=== PATIENT | female | born 1945 | race African-American/Black ===

== ENCOUNTER 2023-04-15 15:34 | Outpatient (AMB) | payer OTHER, SELFPAY ==
--- NOTE | 2023-04-15 15:41 | A.OFFPC_ITS ---
Vital Signs 04/15/23 15:46 Height 5 ft 3 in Weight 145 lb BMI 25.7 BP 126/80 Blood Pressure Location Lt brachial Position Sitting Intake Visit Reasons: DM Intake Note: Patient here for a follow up DM Burnisher Required: No Accompanied by: Self / Same As Patient Allergies No Known Allergies Allergy (Verified 04/15/23 15:55) Medication List - Last Reconciled 04/15/23 by Jeanne Barreto MD acetaminophen (Tylenol Extra Strength) 500 mg PO Q6H PRN blood-glucose meter (FreeStyle Lite Meter kit) As directed metformin 500 mg PO BID 90 days sertraline 25 mg PO DAILY 90 days Tobacco use date assessed: 11/02/22 Fall risk assessment: No Falls in past year Last assessed Fall Risk: 04/15/23 Dental Screening Dental Screen Date: 04/15/23 Did you have a dental visit in the last 12 months?: No Did you have a dental problem in the last 6 months where you did not have access to dental care?: No Was dental information given to patient?: Patient has dentist HPI HPI Comments History of Present Illness Details This is a 77-year-old female with moderate major depression, anxiety, diabetes mellitus type 2 and pure hypercholesterolemia that comes today for follow-up on her conditions. She has not been taking sertraline for depression with anxiety and I advised her to restart. A1c elevated and I will start her on insulin. I will also increase metformin. Lipid panel will be order and her LDL goal should be less than 70. [facility] Medical History Diabetes mellitus CABRERA (generalized anxiety disorder) Moderate major depression, single episode Muscle cramps Pure hypercholesterolemia Vitiligo Surgical History History of tubal ligation Family History Daughter Diabetes mellitus Mother Diabetes mellitus Father Diabetes mellitus Other Mental health disorder Substance use disorder Social History Housing: Apartment Alcohol intake: never Patient Tobacco Use Status: Never used Tobacco e-Cigarette/Vaping Use: Never Used Second Hand Smoke Exposure: No service: No Current occupational status: disabled Cognitive needs: No Hearing needs: No Vision needs: Yes Questionnaire Thrive Questionnaire Date Thrive assessed: 11/02/22 CABRERA-7 AMB Questionnaire CABRERA-7 Date CABRERA - 7 assessed: 11/02/22 Source: Developed by Drs. Bebeto Adkins, Mckayla Tomlin, Hira Christianson and colleagues, with an educational marilin from [employer]. Review of Systems Const All systems reviewed & are unremarkable except as noted in HPI and below Eyes Reports no additional complaints, Denies change in vision and Denies other visual disturbances Card Denies chest pain at rest, Denies chest pain with activity, Denies edema, Denies irregular heart rhythm, Denies claudication, Denies dyspnea, Denies dyspnea on exertion, Denies orthopnea, Denies paroxysmal nocturnal dyspnea and Denies slow heart rate Resp Denies cough, Denies dyspnea and Denies dyspnea on exertion GI Denies abdominal pain, Denies change in bowel habits, Denies excessive flatus, Denies nausea and Denies vomiting Denies urinary incontinence, Denies urinary hesitancy and Denies urinary urgency Musc Denies abnormal gait, Denies atrophy, Denies deformity and Denies limited range of motion Skin/Breast Denies bleeding lesions, Denies changing lesions and Denies rash Neuro Denies abnormal gait and Denies lack of coordination Physical exam (Primary Care) Vital Signs: Last Vital Signs BP 126/80 04/15/23 15:46 BMI result Body Mass Index 25.7 Tobacco/Smoking Status: Tobacco use Status Tobacco use date assessed 11/02/22 04/15/23 15:43 Patient Tobacco Use Status Never used Tobacco 04/15/23 15:43 e-Cigarette/Vaping Use Never Used 04/15/23 15:43 Thrive Assessment: Date of Thrive Assessment Date Thrive assessed 11/02/22 04/15/23 15:43 Eyes General: appearance normal, both eyes and all related structures Eyelids: Yes eyelids normal Conjunctivae: conjunctivae normal Neck Neck: Yes normal visual inspection and Yes supple Resp Effort & Inspection: normal respiratory effort Auscultation: clear to auscultation bilaterally Cardio Jugular venous distension: no JVD Rate: regular rate Rhythm: regular rhythm Heart sounds: S1 normal heart sound present and S2 normal heart sound present Extrem General: Yes full ROM Results AMB Hemoglobin A1c AMB Hemoglobin A1c 12.0 % Last Edit by PERCY Calles on 04/15/23 15: 53 Results Reviewed Results Reviewed: Laboratory Last Values Hgb A1c (Clinic) 12.0 % (4.0-6.0) H 04/15/23 15:40 Assessment and Plan Assessment & Plan (1) Moderate major depression, single episode: Code(s): F32.1 - Major depressive disorder, single episode, moderate Plan: Start sertraline. (2) CABRERA (generalized anxiety disorder): Code(s): F41.1 - Generalized anxiety disorder Plan: Start sertraline. (3) Diabetes mellitus: Code(s): E11.9 - Type 2 diabetes mellitus without complications Qualifiers: Diabetes mellitus type: type 2 Diabetes mellitus prison insulin use: without prison use Diabetes mellitus complication status: with hyperglycemia Qualified Code(s): E11.65 - Type 2 diabetes mellitus with hyperglycemia Plan: Increase metformin. Start insulin. A1c goal is equal or less than 7%. (4) Pure hypercholesterolemia: Code(s): E78.00 - Pure hypercholesterolemia, unspecified Plan: Lipid panel ordered. LDL goal should be less than 70. Orders: Orders Comprehensive [place]. Panel Fast Today E11.65 - Type 2 diabetes mellitus with hyperglycemia Lipid Panel Today E78.5 - Hyperlipidemia, unspecified Vitamin D 25-OH Total Today E55.9 - Vitamin D deficiency, unspecified Microalbumin, Random (w Creat) Today E11.9 - Type 2 diabetes mellitus without complications AMB Hemoglobin A1c Today E11.9 - Type 2 diabetes mellitus without complications Medications: New metformin 1,000 mg PO BID 180 tabs 1RF 90 days E11.65 - Type 2 diabetes mellitus with hyperglycemia insulin glargine 10 units (0.1 mL) subcut QPM 9 mL 1RF 90 days E11.65 - Type 2 diabetes mellitus with hyperglycemia pen needle, diabetic (Comfort EZ Pen [place]) Use 1 pen needle once a day 100 ea 12RF E11.65 - Type 2 diabetes mellitus with hyperglycemia blood sugar diagnostic (FreeStyle Lite Strips) Use 1 test strip twice a day 50 ea 12RF E11.65 - Type 2 diabetes mellitus with hyperglycemia lancets (FreeStyle Lancets) Use 1 lancet twice a day 100 ea 12RF E11.65 - Type 2 diabetes mellitus with hyperglycemia Refilled sertraline 25 mg PO DAILY 90 tabs 1RF 90 days E11.65 - Type 2 diabetes mellitus with hyperglycemia Discontinued metformin Discontinued Reason: Patient Completed Course 500 mg PO BID 90 days 180 tabs 0RF Coding Level of Care Code Est Pt Level 4 (74269) Diagnoses Moderate major depression, single episode F32.1 CABRERA (generalized anxiety disorder) F41.1 Diabetes mellitus E11.65 Diabetes mellitus type: type 2 Diabetes mellitus long term care social worker insulin use: without long term care social worker use Diabetes mellitus complication status: with hyperglycemia Pure hypercholesterolemia E78.00 Time Spent (min) 24
[2023-04-15 15:46] VITALS: BP 126/80; BMI 25.7
== END 2023-04-15 16:05 | disposition home or self-care (01) ==
PROVIDERS: PCP Internal Medicine; Visit Provider Internal Medicine
DX: F32.1 Major depressive disorder, single episode, moderate (principal); F41.1 Generalized anxiety disorder; E11.65 Type 2 diabetes mellitus with hyperglycemia; E78.00 Pure hypercholesterolemia, unspecified; E11.9 Type 2 diabetes mellitus without complications
CPT/HCPCS: 83036; 99214

== ENCOUNTER 2023-11-09 13:31 | Outpatient (AMB) | payer OTHER, SELFPAY ==
[2023-11-09 13:54] VITALS: BP 132/80; BMI 25.5
--- NOTE | 2023-11-09 13:54 | A.OFFPC_ITS ---
Vital Signs 11/09/23 13:54 Height 5 ft 3 in Weight 144 lb BMI 25.5 BP 132/80 Blood Pressure Location Lt brachial Position Sitting Intake Visit Reasons: Annual Exam Intake Note: Patient here for an annual physical exam Hazardous Substances Scientist Required: No Accompanied by: Self / Same As Patient Allergies No Known Allergies Allergy (Verified 11/09/23 14:13) Medication List - Last Reconciled 11/09/23 by Jeanne Barreto MD acetaminophen (Tylenol Extra Strength) 500 mg PO Q6H PRN blood sugar diagnostic (FreeStyle Lite Strips) Use 1 test strip twice a day blood-glucose meter (FreeStyle Lite Meter kit) As directed insulin glargine 10 units (0.1 mL) subcut QPM 90 days lancets (FreeStyle Lancets) Use 1 lancet twice a day metformin 1,000 mg PO BID 90 days pen needle, diabetic (Comfort EZ Pen [place]) Use 1 pen needle once a day sertraline 25 mg PO DAILY 90 days Tobacco use date assessed: 11/09/23 Fall risk assessment: No Falls in past year Last assessed Fall Risk: 11/09/23 Dental Screening Dental Screen Date: 11/09/23 Did you have a dental visit in the last 12 months?: Yes Did you have a dental problem in the last 6 months where you did not have access to dental care?: No Was dental information given to patient?: Patient has dentist HPI HPI Comments History of Present Illness Details This is a 77-year-old female with moderate major depression and diabetes mellitus type 2 on long-term current use of insulin that comes for her physical exam. Depression has markedly improved with SSRIs. A1c very elevated and she does use Lantus 10 units that I will increase today to 20 units. She is also using metformin. Last diabetic eye exam was less than a year ago as per patient. No chest pain or shortness of breath. No need for mammogram, Pap smear or colonoscopy due to age. [facility] Medical History (Updated 11/09/23 @ 14:44 by Jeanne Barreto MD) CABRERA (generalized anxiety disorder) Moderate major depression, single episode Muscle cramps Vitiligo Pure hypercholesterolemia Diabetes mellitus Surgical History History of tubal ligation Family History (Updated 11/09/23 @ 14:17 by Jeanne Barreto MD) Daughter Diabetes mellitus Mother Diabetes mellitus Father Diabetes mellitus Other Mental health disorder Substance use disorder Social History Housing: Apartment Alcohol intake: never Patient Tobacco Use Status: Never used Tobacco e-Cigarette/Vaping Use: Never Used Second Hand Smoke Exposure: No service: No Current occupational status: disabled Cognitive needs: No Hearing needs: No Vision needs: Yes Questionnaire PHQ-9 Over the last 2 weeks, how often have you been bothered by any of the following problems? 1. Little interest or pleasure in doing things: not at all 2. Feeling down, depressed, or hopeless: not at all 3. Trouble falling or staying asleep, or sleeping too much: not at all 4. Feeling tired or having little energy: not at all 5. Poor appetite or overeating: not at all 6. Feeling bad about yourself - or that you are a failure or have let yourself or your family down: not at all 7. Trouble concentrating on things, such as reading the newspaper or watching television: not at all 8. Moving or speaking so slowly that other people could have noticed. Or the opposite - being so fidgety or restless that you have been moving around a lot more than usual: not at all 9. Thoughts that you would be better off or of hurting yourself in some way: not at all Total score: 0 Depression Screening Interpretation: Negative Depression Screening Done: Yes 83620 - PHQ-9 Billing: Yes Source: Developed by Drs. Bebeto Adkins, Mckayla Tomlin, Hira Christianson and colleagues, with an educational marilin from [employer]. Thrive Questionnaire Date Thrive assessed: 11/09/23 I am a: Patient What is your living situation today?: I have a steady place to live Within the past 12 months, did the food you bought not last and you didn't have the money to get more?: Never true Within the past 12 months, did you worry whether your food would run out before you got money to buy more?: Never true Do you have trouble paying for medicines?: No Do you have trouble getting transportation to medical appointments?: No Do you have trouble paying your heating and electricity bill?: No Do you have trouble taking care of your child, family member or friend?: No Do you have trouble with day-to-day activities such as bathing, preparing meals, shopping, managing finances, etc.?: No Are you currently unemployed and looking for a job?: No Are you interested in more education?: No Please select the resources that you would like help with: None Currently or been in a relationship where the following occur: no concerns reported THRIVE Score: 0 AUDIT C Alcohol Use Questionnaire (AUDIT-C) 1. How often do you have a drink containing alcohol?: Never Total Score: 0 Score Reviewed/Action Taken: No CABRERA-7 AMB Questionnaire CABRERA-7 Date CABRERA - 7 assessed: 11/09/23 Feeling nervous, anxious, or on edge: 1 = Several days Not being able to stop or control worryin = Not at all Worrying too much about different things: 0 = Not at all Trouble relaxin = Not at all Being so restless that it is hard to sit still: 0 = Not at all Becoming easily annoyed or irritable: 0 = Not at all Feeling afraid as if something awful might happen: 0 = Not at all Total CABRERA-7 score (0-4 normal; 5-9 mild; 10-14 moderate; 15-21 severe): 1 Source: Developed by Drs. Bebeto Adkins, Mckayla Tomlin, Hira Christianson and colleagues, with an educational marilin from [employer]. CABRERA-7 Assessment Billing CABRERA-7 Assessment Tool: CABRERA-7 Assessment 44878 Review of Systems Const All systems reviewed & are unremarkable except as noted in HPI and below Eyes Reports no additional complaints, Denies change in vision and Denies other visual disturbances Card Denies chest pain at rest, Denies chest pain with activity, Denies edema, Denies irregular heart rhythm, Denies claudication, Denies dyspnea, Denies dyspnea on exertion, Denies orthopnea, Denies paroxysmal nocturnal dyspnea and Denies slow heart rate Resp Denies cough, Denies dyspnea and Denies dyspnea on exertion GI Denies abdominal pain, Denies change in bowel habits, Denies excessive flatus, Denies nausea and Denies vomiting Denies urinary incontinence, Denies urinary hesitancy and Denies urinary urgency Musc Denies abnormal gait, Denies atrophy, Denies deformity and Denies limited range of motion Skin/Breast Denies bleeding lesions, Denies changing lesions and Denies rash Neuro Denies abnormal gait and Denies lack of coordination Physical exam (Primary Care) Vital Signs: Last Vital Signs BP 132/80 11/09/23 13:54 BMI result Body Mass Index 25.5 Tobacco/Smoking Status: Tobacco use Status Tobacco use date assessed 11/09/23 11/09/23 14:00 Patient Tobacco Use Status Never used Tobacco 11/09/23 14:00 e-Cigarette/Vaping Use Never Used 11/09/23 14:00 PHQ-9: PHQ-9 Score PHQ-9: Total score 0 11/09/23 14:17 Depression Screening Interpretation: Negative Thrive Assessment: Date of Thrive Assessment Date Thrive assessed 11/09/23 11/09/23 14:00 Currently or been in a relationship where the following occur: no concerns reported Const Orientation/consciousness: patient oriented x3 HENMT Head: Yes normal to inspection, Yes normocephalic and Yes atraumatic Ears: external ears normal Eyes General: appearance normal, both eyes and all related structures Eyelids: Yes eyelids normal Conjunctivae: conjunctivae normal Neck Neck: Yes normal visual inspection and Yes supple Resp Effort & Inspection: normal respiratory effort Auscultation: clear to auscultation bilaterally Cardio Jugular venous distension: no JVD Rate: regular rate Rhythm: regular rhythm Heart sounds: S1 normal heart sound present and S2 normal heart sound present GI Inspection: Yes normal to inspection Palpation (GI): Soft to palpation and nontender Auscultation: normal bowel sounds Skin General skin exam: no rashes or lesions noted Neuro General: patient oriented x3 and no focal motor deficits Extrem General: Yes full ROM Psych Appearance: grossly normal Results AMB Hemoglobin A1c AMB Hemoglobin A1c 11.6 % Last Edit by PERCY Calles on 11/09/23 14: 02 Results Reviewed Results Reviewed: Laboratory Last Values Hgb A1c (Clinic) 11.6 % (4.0-6.0) H 11/09/23 14:00 Assessment and Plan Assessment & Plan (1) Physical exam: Code(s): Z00.00 - Encounter for general adult medical examination without abnormal findings Plan: Repeat in a year. (2) Diabetes mellitus with hyperglycemia, with long-term current use of insulin: Code(s): E11.65 - Type 2 diabetes mellitus with hyperglycemia; Z79.4 - shelter (current) use of insulin Plan: Continue metformin. Increase insulin from 10 units to 20 units. A1c goal is equal or less than 7%. (3) Moderate major depression, single episode: Code(s): F32.1 - Major depressive disorder, single episode, moderate Plan: Continue SSRIs. Orders: Orders AMB Hemoglobin A1c Today E11.9 - Type 2 diabetes mellitus without complications Vitamin D 25-OH Total Today E55.9 - Vitamin D deficiency, unspecified Microalbumin, Random (w Creat) Today E11.9 - Type 2 diabetes mellitus without complications XR DEXA axial skeleton Today N95.9 - Unspecified menopausal and perimenopausal disorder Lipid Panel Today E78.5 - Hyperlipidemia, unspecified Comprehensive [place]. Panel Fast Today E11.65 - Type 2 diabetes mellitus with hyperglycemia, Z79.4 - terminal gauger supervisor (current) use of insulin Medications: New flash glucose sensor (FreeStyle [place] 2 Sensor kit) As directed 1 ea 11RF E11.65 - Type 2 diabetes mellitus with hyperglycemia, Z79.4 - terminal gauger supervisor (current) use of insulin Changed From insulin glargine 10 units (0.1 mL) subcut QPM 90 days 9 mL 1RF E11.65 - Type 2 diabetes mellitus with hyperglycemia To insulin glargine 20 units (0.2 mL) subcut QPM 18 mL 1RF 90 days E11.65 - Type 2 diabetes mellitus with hyperglycemia Coding Level of Care Code Est Pt Prev Care >65y(69801) Diagnoses Physical exam Z00.00 Diabetes mellitus with hyperglycemia, with long-term current use of insulin E11.65; Z79.4 Moderate major depression, single episode F32.1 Additional Codes CABRERA-7 Assessment Billing - CABRERA-7 Assessment Tool: CABRERA-7 Assessment [id number] ([id number]) Time Spent (min) 33
== END 2023-11-09 14:28 | disposition home or self-care (01) ==
PROVIDERS: Visit Provider Internal Medicine
DX: Z00.00 Encounter for general adult medical examination without abnormal findings (principal); E11.65 Type 2 diabetes mellitus with hyperglycemia; Z79.4 Long term (current) use of insulin; F32.1 Major depressive disorder, single episode, moderate; E11.9 Type 2 diabetes mellitus without complications
CPT/HCPCS: 83036; 99397

== ENCOUNTER 2023-11-13 08:42 | Outpatient (REF) | payer OTHER, SELFPAY ==
[2023-11-13 10:00] LABS: Alanine Aminotransferase 14 U/L (0-31); Alkaline Phosphatase 68 U/L (39-117); Anion Gap 15 (12-20); Aspartate Amino Transferase 19 U/L (5-31); Bilirubin Total 0.4 mg/dL (0.0-1.0); Blood Urea Nitrogen 22 mg/dL (9-16); Calcium 9.5 mg/dL (8.4-10.2); Carbon Dioxide 25 mmol/L (22-29); Chloride 102 mmol/L (96-108); Cholesterol 188 mg/dL (<200); Estimated Glomerular Filt Rate 56; Glucose Fasting 245 mg/dL (60-99); HDL Cholesterol 41 mg/dL (>40); LDL Cholesterol Calculated 111 mg/dL (<100); Potassium 3.9 mmol/L (3.3-5.1); Sodium 138 mmol/L (135-145); Total Protein 7.5 g/dL (6.5-8.0); Triglycerides 184 mg/dL (<150)
[2023-11-13 10:14] LABS: Creatinine Urine 23.35 mg/dL; Microalbum/Creatinine Ratio Ur 21.4 ug/mg cr (<30)
[2023-11-13 10:19] LABS: Vitamin D 25-OH Total 24.9 ng/mL (>30)
== END 2023-11-13 08:43 | disposition home or self-care (01) ==
LOC: HO.LAB 08:42
PROVIDERS: PCP Internal Medicine; Visit Provider Internal Medicine
DX: E11.65 Type 2 diabetes mellitus with hyperglycemia (principal); E78.5 Hyperlipidemia, unspecified; E55.9 Vitamin D deficiency, unspecified; Z79.4 Long term (current) use of insulin
CPT/HCPCS: 36415; 80053; 80061; 82043; 82306; 82570

== ENCOUNTER 2024-02-23 09:51 | Outpatient (REF) | payer OTHER, SELFPAY ==
--- NOTE | ~2024-02-23 | MM_ITS ---
EXAMINATION: BONE DENSITOMETRY CLINICAL INDICATION: Postmenopausal. COMPARISON: Baseline BD dated 06/30/2013. TECHNIQUE: Using a [employer] DXA System (software version: 13.1) manufactured by [employer], dual-energy x-ray absorptiometry was performed of the lumbar spine and left hip. The images are of good technical quality. Summary results are attached. FINDINGS: LEFT FEMUR, NECK: Current: BMD 0.862 g/cm2, Z-score 0.3, T-score -1.3, osteopenia. Baseline: BMD 0.861 g/cm2. LEFT FEMUR, TOTAL: Current: BMD 0.897 g/cm2, Z-score 0.5, T-score -0.9, normal, 10.2% decrease from baseline (<5% change is not significant). Baseline: BMD 0.999 g/cm2. AP SPINE L1-L3 (excluding L4): The data of L1-L4 has been changed to exclude the L4 vertebral body, because general sclerosis at this level may cause overestimation of lumbar spine density. Current: BMD 1.260 g/cm2, Z-score 1.9, T-score 0.8, normal, 2.4% decrease from baseline (<5% change is not significant). Baseline: BMD 1.291 g/cm2. IDENTIFIED RISK FACTORS: Menopause. HISTORY OF FRACTURE: None listed. MEDICATIONS: None listed. MM/XR DEXA axial skeleton IMPRESSION: 1. DIAGNOSIS: Osteopenia based on the lowest T-score value of -1.3 in the femoral neck applying World Health Organization criteria. 2. 10-YEAR FRACTURE RISK PREDICTION, FRAX: Major osteoporotic fracture (clinical spine, forearm, hip or shoulder) 6.1%. Hip fracture 1.1%. 3. Treatment Recommendations: NOF guidelines recommend consideration for treatment in postmenopausal women and men age 50 and older presenting with the following: -A hip or vertebral (clinical or morphometric) fracture. -T-score less than or equal to -2.5 at the femoral neck or spine after appropriate evaluation to exclude secondary causes. -Low bone mass at the hip or spine and a 10-year fracture probability by FRAX of greater than or equal to 3% for hip fracture or greater than or equal to 20% for major osteoporotic fracture based on the [place] adapted WHO algorithm. 4. Other Recommendations: All treatment decisions require clinical judgment and consideration of individual patient factors, including patient preferences, comorbidities, previous drug use, risk factors not captured in the FRAX model (e.g. frailty, falls, vitamin D deficiency, increased bone turnover, interval significant decline in bone density) and possible under or overestimation of fracture risk by FRAX. Additional medical evaluation for secondary cause of low bone mineral density may be appropriate. FUTURE SCAN RECOMMENDATION: People with diagnosed cases of osteoporosis or at high risk for fracture should have regular bone mineral density tests. For patients eligible for Medicare, routine testing is allowed once every 2 years. The testing frequency can be increased to one year for patients who have rapidly progressing disease, those who are receiving or discontinuing medical therapy to restore bone mass, or have additional risk factors.
== END 2024-02-23 09:52 | disposition home or self-care (01) ==
LOC: HO.MAMMO 09:51
PROVIDERS: PCP Internal Medicine; Visit Provider Internal Medicine
DX: Z13.820 Encounter for screening for osteoporosis (principal); Z78.0 Asymptomatic menopausal state
CPT/HCPCS: 77080

== ENCOUNTER 2024-03-30 09:08 | Outpatient (AMB) | payer OTHER, SELFPAY ==
--- NOTE | 2024-03-30 09:11 | MHC.PC.OV ---
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 Accompanied by: Self / Same As Patient Allergies No Known Allergies Allergy (Verified 03/30/24 09:30) Medication List - Last Reconciled 03/30/24 by Jeanne Barreto MD acetaminophen (Tylenol Extra Strength) 500 mg PO Q6H PRN [air conditioner As directed] blood sugar diagnostic (FreeStyle Lite Strips) Use 1 test strip twice a day blood-glucose meter (FreeStyle Lite Meter kit) As directed calcium carbonate-vitamin D3 500 mg-10 mcg (400 unit) (Oyster Shell Calcium-Vitamin D3) 1 tab PO BID 90 days flash glucose sensor (FreeStyle Royal 2 Sensor kit) As directed insulin glargine 20 units (0.2 mL) subcut QPM 90 days lancets (FreeStyle Lancets) Use 1 lancet twice a day metformin 1,000 mg PO BID 90 days pen needle, diabetic (Comfort EZ Pen [place]) Use 1 pen needle once a day sertraline 25 mg PO DAILY 90 days Tobacco use date assessed: 11/09/23 Fall risk assessment: No Falls in past year Last assessed Fall Risk: 03/30/24 Dental Screening Dental Screen Date: 11/09/23 HPI HPI Comments History of Present Illness Details This is a 78-year-old female with diabetes mellitus type 2 on long-term current use of insulin, pure hypercholesterolemia, moderate major depression, anxiety and osteopenia that comes today for follow-up on her conditions. A1c elevated and I will refer her to Endocrinology and increase her insulin from 20 units to 25 units. Last LDL was not on goal and this will be repeated. Dietary changes were advised. Depression and anxiety stable with SSRIs. DEXA scan done 2023 shows osteopenia and she is on calcium with vitamin-D. No chest pain or shortness on breath. [facility] Medical History (Updated 03/30/24 @ 09:41 by Jeanne Barreto MD) CABRERA (generalized anxiety disorder) Moderate major depression, single episode Muscle cramps Vitiligo Pure hypercholesterolemia Diabetes mellitus Surgical History History of tubal ligation Family History Daughter Diabetes mellitus Mother Diabetes mellitus Father Diabetes mellitus Other Mental health disorder Substance use disorder Social History Housing: Apartment Alcohol intake: never Patient Tobacco Use Status: Never used Tobacco e-Cigarette/Vaping Use: Never Used Second Hand Smoke Exposure: No service: No Current occupational status: disabled Cognitive needs: No Hearing needs: No Vision needs: Yes Questionnaire Thrive Questionnaire Date Thrive assessed: 11/09/23 CABRERA-7 AMB Questionnaire CABRERA-7 Date CABRERA - 7 assessed: 11/09/23 Source: Developed by Drs. Bebeto Adkins, Mckayla Tomlin, Hira Christianson and colleagues, with an educational marilin from [employer]. Review of Systems Const All systems reviewed & are unremarkable except as noted in HPI and below Card Denies chest pain at rest, Denies chest pain with activity, Denies edema, Denies irregular heart rhythm, Denies claudication, Denies dyspnea, Denies dyspnea on exertion, Denies orthopnea, Denies paroxysmal nocturnal dyspnea and Denies slow heart rate Resp Denies cough, Denies dyspnea and Denies dyspnea on exertion GI Denies abdominal pain, Denies change in bowel habits, Denies excessive flatus, Denies nausea and Denies vomiting Denies urinary incontinence, Denies urinary hesitancy and Denies urinary urgency Physical exam (Primary Care) Vital Signs: Last Vital Signs BP 136/74 03/30/24 09:12 BMI result Body Mass Index 25.9 Tobacco/Smoking Status: Tobacco use Status Tobacco use date assessed 11/09/23 03/30/24 09:14 Patient Tobacco Use Status Never used Tobacco 03/30/24 09:14 e-Cigarette/Vaping Use Never Used 03/30/24 09:14 Thrive Assessment: Date of Thrive Assessment Date Thrive assessed 11/09/23 03/30/24 09:14 Resp Effort & Inspection: normal respiratory effort Auscultation: clear to auscultation bilaterally Cardio Jugular venous distension: no JVD Rate: regular rate Rhythm: regular rhythm Heart sounds: S1 normal heart sound present and S2 normal heart sound present Extrem General: Yes full ROM Results AMB Hemoglobin A1c AMB Hemoglobin A1c 11.1 % Last Edit by PERCY Calles on 03/30/24 09:24 Results Reviewed Results Reviewed: Laboratory Last Values Hgb A1c (Clinic) 11.1 % (4.0-6.0) H 03/30/24 09:14 Assessment and Plan Assessment & Plan (1) Diabetes mellitus with hyperglycemia, with long-term current use of insulin: Code(s): E11.65 - Type 2 diabetes mellitus with hyperglycemia; Z79.4 - jail (current) use of insulin Qualifiers: Diabetes mellitus type: type 2 Qualified Code(s): E11.65 - Type 2 diabetes mellitus with hyperglycemia; Z79.4 - long term acute care registered nurse (current) use of insulin Plan: Continue metformin. Increase insulin from 20 units to 25 units. Referred to Endocrinology. A1c goal is equal or less than 7%. (2) Osteopenia: Code(s): M85.80 - Other specified disorders of bone density and structure, unspecified site Qualifiers: Osteopenia location: unspecified Qualified Code(s): M85.80 - Other specified disorders of bone density and structure, unspecified site Plan: Continue calcium with vitamin-D. Repeat DEXA scan 2025. (3) Moderate major depression, single episode: Code(s): F32.1 - Major depressive disorder, single episode, moderate Plan: Continue SSRIs. (4) Pure hypercholesterolemia: Code(s): E78.00 - Pure hypercholesterolemia, unspecified Plan: Continue statins. Repeat lipid panel. LDL goal is less than 70. (5) CABRERA (generalized anxiety disorder): Code(s): F41.1 - Generalized anxiety disorder Plan: Continue SSRIs. Orders: Orders AMB Hemoglobin A1c Today E11.65 - Type 2 diabetes mellitus with hyperglycemia, Z79.4 - long term acute care registered nurse (current) use of insulin Microalbumin, Random (w Creat) Today E11.9 - Type 2 diabetes mellitus without complications Lipid Panel Today E78.5 - Hyperlipidemia, unspecified Comprehensive [place]. Panel Fast Today E11.65 - Type 2 diabetes mellitus with hyperglycemia, Z79.4 - jail (current) use of insulin Referrals Endocrinology Referral E11.65 - Type 2 diabetes mellitus with hyperglycemia, Z79.4 - jail (current) use of insulin Medications: Changed From insulin glargine 20 units (0.2 mL) subcut QPM 90 days 18 mL 1RF E11.65 - Type 2 diabetes mellitus with hyperglycemia To insulin glargine 25 units (0.25 mL) subcut QPM 90 days 22.5 mL 1RF E11.65 - Type 2 diabetes mellitus with hyperglycemia Refilled metformin 1,000 mg PO BID 90 days 180 tabs 1RF E11.65 - Type 2 diabetes mellitus with hyperglycemia sertraline 25 mg PO DAILY 90 days 90 tabs 1RF E11.65 - Type 2 diabetes mellitus with hyperglycemia Coding Level of Care Code Est Pt Level 4 (10276) Complex EM visit Add On G2211 Diagnoses Type 2 diabetes mellitus with hyperglycemia, with long-term current use of insulin E11.65; Z79.4 Diabetes mellitus type: type 2 Osteopenia, unspecified location M85.80 Osteopenia location: unspecified Moderate major depression, single episode F32.1 Pure hypercholesterolemia E78.00 CABRERA (generalized anxiety disorder) F41.1 Time Spent (min) 23
[2024-03-30 09:12] VITALS: BP 136/74; BMI 25.9
== END 2024-03-30 09:39 | disposition home or self-care (01) ==
PROVIDERS: PCP Internal Medicine; Visit Provider Internal Medicine
DX: E11.65 Type 2 diabetes mellitus with hyperglycemia (principal); Z79.4 Long term (current) use of insulin; M85.80 Other specified disorders of bone density and structure, unspecified site; F32.1 Major depressive disorder, single episode, moderate; E78.00 Pure hypercholesterolemia, unspecified; F41.1 Generalized anxiety disorder
CPT/HCPCS: 83036; 99214; G2211

== ENCOUNTER 2024-04-07 16:01 | Outpatient (REF) | payer OTHER, SELFPAY ==
--- NOTE | ~2024-04-07 | MM_ITS ---
EXAMINATION: MM SCREENING DIGITAL BREAST TOMOSYNTHESIS, BILATERAL CLINICAL INFORMATION: Screening. Asymptomatic. COMPARISON: Mammography: [place] is made with available prior exams. TECHNIQUE: Digital breast tomosynthesis is performed in both the craniocaudal and mediolateral oblique views along with computer-aided detection (CAD). Synthesized 2D images are generated from the tomosynthesis. FINDINGS: There are scattered areas of fibroglandular density (ACR BI-RADS breast composition Category b). There are no significant masses, abnormal calcifications, or other abnormalities. MM/MM tomosynthesis screening BI IMPRESSION: No mammographic evidence of malignancy. ASSESSMENT: BI-RADS BI-RADS 1 - Negative RECOMMENDATION: Routine annual mammography screening. 1 year F/U This examination should not preclude the clinical evaluation of a suspicious palpable abnormality. This patient's information was entered into a reminder system with a target due date for their next mammogram. Electronically signed by: Lynn Merida DO 05/05/2024 09:52 AM EDT
== END 2024-04-07 16:02 | disposition home or self-care (01) ==
LOC: HO.MAMMO 16:01
PROVIDERS: PCP Internal Medicine; Visit Provider Internal Medicine
DX: Z12.31 Encounter for screening mammogram for malignant neoplasm of breast (principal)
CPT/HCPCS: 77063; 77067

== ENCOUNTER → 2024-04-07 16:30 | Outpatient (BNV) | payer OTHER, SELFPAY | PROVIDERS: PCP Internal Medicine; Visit Provider Internal Medicine | DX: Z12.31 Encounter for screening mammogram for malignant neoplasm of breast (principal) | CPT/HCPCS: 77063; 77067 ==

== ENCOUNTER 2024-09-09 08:26 | Outpatient (REF) | payer OTHER, SELFPAY ==
[2024-09-09 09:45] LABS: Creatinine Urine 291.76 mg/dL; Microalbum/Creatinine Ratio Ur 17.8 ug/mg cr (<30)
[2024-09-09 09:48] LABS: Alanine Aminotransferase 18 U/L (0-31); Albumin Level 4.2 g/dL (3.5-5.0); Alkaline Phosphatase 65 U/L (39-117); Anion Gap 12 (12-20); Aspartate Amino Transferase 25 U/L (5-31); Bilirubin Total 0.4 mg/dL (0.0-1.0); Blood Urea Nitrogen 20 mg/dL (9-16); Calcium 9.3 mg/dL (8.4-10.2); Carbon Dioxide 26 mmol/L (22-29); Chloride 104 mmol/L (96-108); Cholesterol 182 mg/dL (<200); Estimated Glomerular Filt Rate > 60; Glucose Fasting 280 mg/dL (60-99); HDL Cholesterol 43 mg/dL (>40); LDL Cholesterol Calculated 116 mg/dL (<100); Potassium 4.2 mmol/L (3.3-5.1); Sodium 138 mmol/L (135-145); Total Protein 7.9 g/dL (6.5-8.0); Triglycerides 115 mg/dL (<150)
[2024-09-09 10:06] LABS: Vitamin D 25-OH Total 26.8 ng/mL (>30)
== END 2024-09-09 08:27 | disposition home or self-care (01) ==
LOC: HO.LAB 08:26
PROVIDERS: PCP Internal Medicine; Visit Provider Internal Medicine
DX: E55.9 Vitamin D deficiency, unspecified (principal); E78.5 Hyperlipidemia, unspecified; E11.65 Type 2 diabetes mellitus with hyperglycemia; Z79.4 Long term (current) use of insulin
CPT/HCPCS: 36415; 80053; 80061; 82043; 82306; 82570

== ENCOUNTER 2024-09-12 16:44 | Outpatient (AMB) | payer OTHER, SELFPAY ==
--- NOTE | 2024-09-12 16:59 | MHC.PC.OV ---
Vital Signs 09/12/24 17:03 Height 5 ft 3 in Weight 145 lb BMI 25.7 BP 130/80 Blood Pressure Location Lt brachial Position Sitting Intake Visit Reasons: 4 month f/u Intake Note: Patient here for a 4 month follow up Quarantine Inspector Required: Yes Quarantine Inspector Language: Metal Turner Name: Jeanne Barreto MD Information Interpreted: non-clinical & clinical Accompanied by: Self / Same As Patient Allergies No Known Allergies Allergy (Verified 09/12/24 17:11) Medication List - Last Reconciled 09/12/24 by Jeanne Barreto MD acetaminophen (Tylenol Extra Strength) 500 mg PO Q6H PRN [air conditioner As directed] blood sugar diagnostic (FreeStyle Lite Strips) Use 1 test strip twice a day blood-glucose meter (FreeStyle Lite Meter kit) As directed calcium carbonate-vitamin D3 500 mg-10 mcg (400 unit) (Oyster Shell Calcium-Vitamin D3) 1 tab PO BID 90 days cholecalciferol (vitamin D3) 25 mcg PO DAILY 90 days flash glucose sensor (FreeStyle Royal 2 Sensor kit) As directed insulin glargine 25 units (0.25 mL) subcut QPM 90 days lancets (FreeStyle Lancets) Use 1 lancet twice a day metformin 1,000 mg PO BID 90 days pen needle, diabetic (Comfort EZ Pen [place]) Use 1 pen needle once a day sertraline 25 mg PO DAILY 90 days Tobacco use date assessed: 09/12/24 Fall risk assessment: No Falls in past year Last assessed Fall Risk: 09/12/24 Dental Screening Dental Screen Date: 09/12/24 Did you have a dental visit in the last 12 months?: Yes Did you have a dental problem in the last 6 months where you did not have access to dental care?: No Was dental information given to patient?: Patient has dentist HPI HPI Comments History of Present Illness Details This is a 78-year-old female with diabetes mellitus type 2 with hyperglycemia on long-term current use of insulin, pure hypercholesterolemia, osteopenia and moderate major depression with anxiety that comes today for follow-up on her conditions. A1c elevated by has improved and I will increase Lantus. I will start her on statins because LDL is not on goal. Last DEXA scan was 2023 showing osteopenia and she is on calcium with vitamin-D. Next DEXA scan should be 2025. She has moderate major depression with anxiety but is not compliant with sertraline on a daily basis. Denies any chest pain or shortness on breath. [facility] Medical History CABRERA (generalized anxiety disorder) Moderate major depression, single episode Muscle cramps Vitiligo Pure hypercholesterolemia Diabetes mellitus Surgical History History of tubal ligation Family History Daughter Diabetes mellitus Mother Diabetes mellitus Father Diabetes mellitus Other Mental health disorder Substance use disorder Social History Housing: Apartment Alcohol intake: never Patient Tobacco Use Status: Never used Tobacco e-Cigarette/Vaping Use: Never Used Second Hand Smoke Exposure: No service: No Current occupational status: disabled Cognitive needs: No Hearing needs: No Vision needs: Yes Questionnaire PHQ-9 Over the last 2 weeks, how often have you been bothered by any of the following problems? 1. Little interest or pleasure in doing things: not at all 2. Feeling down, depressed, or hopeless: several days 3. Trouble falling or staying asleep, or sleeping too much: several days 4. Feeling tired or having little energy: several days 5. Poor appetite or overeating: not at all 6. Feeling bad about yourself - or that you are a failure or have let yourself or your family down: not at all 7. Trouble concentrating on things, such as reading the newspaper or watching television: not at all 8. Moving or speaking so slowly that other people could have noticed. Or the opposite - being so fidgety or restless that you have been moving around a lot more than usual: not at all 9. Thoughts that you would be better off or of hurting yourself in some way: not at all Total score: 3 Depression Screening Interpretation: Positive Depression Screening Follow-up: Existing condition, In treatment and Follow-up Visit Requested Depression Screening Done: Yes 49622 - PHQ-9 Billing: Yes Source: Developed by Mckayla Knapp Nabor, Hira Christianson and colleagues, with an educational marilin from [employer]. Thrive Questionnaire Date Thrive assessed: 09/12/24 I am a: Patient What is your living situation today?: I have a steady place to live Within the past 12 months, did the food you bought not last and you didn't have the money to get more?: Never true Within the past 12 months, did you worry whether your food would run out before you got money to buy more?: Never true Do you have trouble paying for medicines?: No Do you have trouble getting transportation to medical appointments?: No Do you have trouble paying your heating and electricity bill?: No Do you have trouble taking care of your child, family member or friend?: No Do you have trouble with day-to-day activities such as bathing, preparing meals, shopping, managing finances, etc.?: No Are you currently unemployed and looking for a job?: No Are you interested in more education?: No Please select the resources that you would like help with: None Currently or been in a relationship where the following occur: No concerns reported THRIVE Score: 0 AUDIT C Alcohol Use Questionnaire (AUDIT-C) 1. How often do you have a drink containing alcohol?: Never Total Score: 0 CABRERA-7 AMB Questionnaire CABRERA-7 Date CABRERA - 7 assessed: 09/12/24 Feeling nervous, anxious, or on edge: 1 = Several days Not being able to stop or control worryin = Not at all Worrying too much about different things: 1 = Several days Trouble relaxin = Not at all Being so restless that it is hard to sit still: 0 = Not at all Becoming easily annoyed or irritable: 0 = Not at all Feeling afraid as if something awful might happen: 1 = Several days Total CABRERA-7 score (0-4 normal; 5-9 mild; 10-14 moderate; 15-21 severe): 3 Source: Developed by Drs. Bebeto Adkins, Mckayla Tomlin, Hira Christianson and colleagues, with an educational marilin from [employer]. Review of Systems Const All systems reviewed & are unremarkable except as noted in HPI and below Card Denies chest pain at rest, Denies chest pain with activity, Denies edema, Denies irregular heart rhythm, Denies claudication, Denies dyspnea, Denies dyspnea on exertion, Denies orthopnea, Denies paroxysmal nocturnal dyspnea and Denies slow heart rate Resp Denies cough, Denies dyspnea and Denies dyspnea on exertion GI Denies abdominal pain, Denies change in bowel habits, Denies excessive flatus, Denies nausea and Denies vomiting Physical exam (Primary Care) Vital Signs: Last Vital Signs BP 130/80 09/12/24 17:03 BMI result Body Mass Index 25.7 Tobacco/Smoking Status: Tobacco use Status Tobacco use date assessed 09/12/24 09/12/24 17:08 Patient Tobacco Use Status Never used Tobacco 09/12/24 17:01 e-Cigarette/Vaping Use Never Used 09/12/24 17:01 PHQ-9: PHQ-9 Score PHQ-9: Total score 3 09/12/24 17:24 Depression Screening Interpretation: Positive Depression Screening Follow-up: Existing condition, In treatment and Follow-up Visit Requested Thrive Assessment: Date of Thrive Assessment Date Thrive assessed 09/12/24 09/12/24 17:01 Currently or been in a relationship where the following occur: No concerns reported Resp Effort & Inspection: normal respiratory effort Auscultation: clear to auscultation bilaterally Cardio Jugular venous distension: no JVD Rate: regular rate Rhythm: regular rhythm Heart sounds: S1 normal heart sound present and S2 normal heart sound present Extrem General: Yes full ROM Office Procedures Flu Questionnaire Does the patient have a severe egg allergy?: No Results AMB Hemoglobin A1c AMB Hemoglobin A1c 9.9 % Last Edit by PERCY Calles on 09/12/24 17:11 Immunizations Fluarix Triv [id number] (PF) 45 mcg (15 mcg x 3)/0.5 mL IM syringe Performing Provider: Jeanne Barreto MD [facility] [facility] [place] [facility] Documented (not given) by: PERCY Calles on 09/12/24 17:24 Reason Not Given: Patient Refused Results Reviewed Results Reviewed: Laboratory Last Values Hgb A1c (Clinic) 9.9 % (4.0-6.0) H 09/12/24 16:59 Coding Level of Care Code Est Pt Level 4 (48573) Complex EM visit Add On G2211 Diagnoses Type 2 diabetes mellitus with hyperglycemia, with long-term current use of insulin E11.65; Z79.4 Diabetes mellitus type: type 2 Osteopenia, unspecified location M85.80 Osteopenia location: unspecified Moderate major depression, single episode F32.1 Pure hypercholesterolemia E78.00 CABRERA (generalized anxiety disorder) F41.1 Additional Codes PHQ-9 - 69949 - PHQ-9 Billing: Yes ([id number]) Time Spent (min) 22 Assessment & Plan Assessment & Plan (1) Diabetes mellitus with hyperglycemia, with long-term current use of insulin: Code(s): E11.65 - Type 2 diabetes mellitus with hyperglycemia; Z79.4 - tank terminal gauger (current) use of insulin Category: Medical Qualifiers: Diabetes mellitus type: type 2 Qualified Code(s): E11.65 - Type 2 diabetes mellitus with hyperglycemia; Z79.4 - tank terminal gauger (current) use of insulin (2) Osteopenia: Code(s): M85.80 - Other specified disorders of bone density and structure, unspecified site Category: Medical Qualifiers: Osteopenia location: unspecified Qualified Code(s): M85.80 - Other specified disorders of bone density and structure, unspecified site (3) Moderate major depression, single episode: Code(s): F32.1 - Major depressive disorder, single episode, moderate Category: Medical (4) Pure hypercholesterolemia: Code(s): E78.00 - Pure hypercholesterolemia, unspecified Category: Medical (5) CABRERA (generalized anxiety disorder): Code(s): F41.1 - Generalized anxiety disorder Category: Medical Plan Increase insulin. A1c goal is equal or less than 7%. Blood pressure goal is less than 130/80. Start statins to reach LDL goal less than 70. Take sertraline daily for depression with anxiety. Orders: Orders AMB Hemoglobin A1c Today E11.65 - Type 2 diabetes mellitus with hyperglycemia, Z79.4 - tank terminal gauger (current) use of insulin Influenza [id number] Immunization Today Z23 - Encounter for immunization Medications: New rosuvastatin 20 mg PO DAILY 90 tabs 1RF 90 days Changed From insulin glargine 25 units (0.25 mL) subcut QPM 90 days 22.5 mL 1RF E11.65 - Type 2 diabetes mellitus with hyperglycemia To insulin glargine 28 units (0.28 mL) subcut QPM 25.2 mL 1RF 90 days E11.65 - Type 2 diabetes mellitus with hyperglycemia Refilled sertraline 25 mg PO DAILY 90 tabs 1RF 90 days E11.65 - Type 2 diabetes mellitus with hyperglycemia
[2024-09-12 17:03] VITALS: BP 130/80; BMI 25.7
== END 2024-09-12 17:36 | disposition home or self-care (01) ==
PROVIDERS: PCP Internal Medicine; Visit Provider Internal Medicine
DX: E11.65 Type 2 diabetes mellitus with hyperglycemia (principal); Z79.4 Long term (current) use of insulin; M85.80 Other specified disorders of bone density and structure, unspecified site; F32.1 Major depressive disorder, single episode, moderate; E78.00 Pure hypercholesterolemia, unspecified; F41.1 Generalized anxiety disorder; Z23 Encounter for immunization

== ENCOUNTER → 2024-09-12 16:44 | Outpatient (BNVA) | payer OTHER, SELFPAY | PROVIDERS: PCP Internal Medicine; Visit Provider Internal Medicine | DX: E11.65 Type 2 diabetes mellitus with hyperglycemia (principal); Z79.4 Long term (current) use of insulin; M85.80 Other specified disorders of bone density and structure, unspecified site; F32.1 Major depressive disorder, single episode, moderate; F41.1 Generalized anxiety disorder; E78.00 Pure hypercholesterolemia, unspecified | CPT/HCPCS: 83036; 90471; 96127; 99212 ==

== ENCOUNTER 2025-03-06 12:40 | Outpatient (AMB) | payer OTHER, SELFPAY ==
[2025-03-06 12:43] VITALS: BP 132/76; BMI 26.0
--- NOTE | 2025-03-06 12:43 | MHC.PC.OV ---
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 Accompanied by: Self / Same As Patient Allergies No Known Allergies Allergy (Verified 03/06/25 13:01) Medication List - Last Reconciled 03/06/25 by Jeanne Barreto MD acetaminophen (Tylenol Extra Strength) 500 mg PO Q6H PRN [air conditioner As directed] blood sugar diagnostic (FreeStyle Lite Strips) Use 1 test strip twice a day blood-glucose meter (FreeStyle Lite Meter kit) As directed calcium carbonate-vitamin D3 500 mg-10 mcg (400 unit) (Oyster Shell Calcium-Vitamin D3) 1 tab PO BID 90 days cholecalciferol (vitamin D3) 25 mcg PO DAILY 90 days flash glucose sensor (FreeStyle Royal 2 Sensor kit) As directed insulin glargine 28 units (0.28 mL) subcut QPM 90 days insulin syringe-needle U-100 As directed-daily lancets (FreeStyle Lancets) Use 1 lancet twice a day metformin 1,000 mg PO BID 90 days pen needle, diabetic (Comfort EZ Pen Roe) Use 1 pen needle once a day rosuvastatin 20 mg PO DAILY 90 days sertraline 25 mg PO DAILY 90 days Tobacco use date assessed: 09/12/24 Fall risk assessment: No Falls in past year Last assessed Fall Risk: 03/06/25 Dental Screening Dental Screen Date: 09/12/24 HPI HPI Comments History of Present Illness Details The patient is a 79-year-old female presenting for an annual physical examination and management of chronic conditions. The patient has a history of osteopenia, diagnosed following a bone densitometry (DEXA) scan, with calcium and vitamin D supplementation prescribed as treatment. The next DEXA scan is scheduled for 2025. The patient reports a history of depression, with a PHQ score of 11, and is currently prescribed sertraline for management. She has experienced recent bereavement, which may have exacerbated her depressive symptoms. The patient has diabetes mellitus, with a recent hemoglobin A1c level of 10.2%, indicating poor glycemic control. Her current medication regimen includes Lantus, which has been increased to 35 units, and metformin taken twice daily. The patient also has hyperlipidemia, managed with rosuvastatin 20 mg daily. Recent cholesterol levels were not significantly elevated, but further laboratory tests are planned in four months. - Pneumonia vaccination discussed and planned for administration. - Bone densitometry (DEXA) scan scheduled for 2025. [facility] Medical History CABRERA (generalized anxiety disorder) Moderate major depression, single episode Muscle cramps Vitiligo Pure hypercholesterolemia Diabetes mellitus Surgical History History of tubal ligation Family History Daughter Diabetes mellitus Mother Diabetes mellitus Father Diabetes mellitus Other Mental health disorder Substance use disorder Social History Housing: Apartment Alcohol intake: never Patient Tobacco Use Status: Never used Tobacco e-Cigarette/Vaping Use: Never Used Second Hand Smoke Exposure: No service: No Current occupational status: disabled Cognitive needs: No Hearing needs: No Vision needs: Yes Questionnaire PHQ-9 Over the last 2 weeks, how often have you been bothered by any of the following problems? 1. Little interest or pleasure in doing things: more than half the days 2. Feeling down, depressed, or hopeless: not at all 3. Trouble falling or staying asleep, or sleeping too much: nearly every day 4. Feeling tired or having little energy: more than half the days 5. Poor appetite or overeating: nearly every day 6. Feeling bad about yourself - or that you are a failure or have let yourself or your family down: not at all 7. Trouble concentrating on things, such as reading the newspaper or watching television: several days 8. Moving or speaking so slowly that other people could have noticed. Or the opposite - being so fidgety or restless that you have been moving around a lot more than usual: not at all 9. Thoughts that you would be better off or of hurting yourself in some way: not at all Total score: 11 Depression Screening Interpretation: Positive Depression Screening Follow-up: Existing condition, In treatment and Follow-up Visit Requested Depression Screening Done: Yes 33904 - PHQ-9 Billing: Yes Source: Developed by Drs. Bebeto Adkins, Mckayla Tomlin, Hira Christianson and colleagues, with an educational marilin from [employer]. Thrive Questionnaire Date Thrive assessed: 09/12/24 I am a: Patient What is your living situation today?: I have a steady place to live Within the past 12 months, did the food you bought not last and you didn't have the money to get more?: Never true Within the past 12 months, did you worry whether your food would run out before you got money to buy more?: Never true Do you have trouble paying for medicines?: No Do you have trouble getting transportation to medical appointments?: No Do you have trouble paying your heating and electricity bill?: No Do you have trouble taking care of your child, family member or friend?: No Do you have trouble with day-to-day activities such as bathing, preparing meals, shopping, managing finances, etc.?: No Are you currently unemployed and looking for a job?: No Are you interested in more education?: No Please select the resources that you would like help with: None Currently or been in a relationship where the following occur: No concerns reported THRIVE Score: 0 AUDIT C Alcohol Use Questionnaire (AUDIT-C) 1. How often do you have a drink containing alcohol?: Never Total Score: 0 Score Reviewed/Action Taken: No CABRERA-7 AMB Questionnaire CABRERA-7 Date CABRERA - 7 assessed: 09/12/24 Feeling nervous, anxious, or on edge: 0 = Not at all Not being able to stop or control worryin = Not at all Worrying too much about different things: 1 = Several days Trouble relaxin = Not at all Being so restless that it is hard to sit still: 0 = Not at all Becoming easily annoyed or irritable: 0 = Not at all Feeling afraid as if something awful might happen: 0 = Not at all Total CABRERA-7 score (0-4 normal; 5-9 mild; 10-14 moderate; 15-21 severe): 1 Source: Developed by Drs. Bebeto Adkins, Hira Francis and colleagues, with an educational marilin from [employer]. CABRERA-7 Assessment Billing CABRERA-7 Assessment Tool: CABRERA-7 Assessment 12482 Review of Systems Const All systems reviewed & are unremarkable except as noted in HPI and below Card Denies chest pain at rest, Denies chest pain with activity, Denies edema, Denies irregular heart rhythm, Denies claudication, Denies dyspnea, Denies dyspnea on exertion, Denies orthopnea, Denies paroxysmal nocturnal dyspnea and Denies slow heart rate Resp Denies cough, Denies dyspnea and Denies dyspnea on exertion GI Denies abdominal pain, Denies change in bowel habits, Denies excessive flatus, Denies nausea and Denies vomiting Denies urinary incontinence, Denies urinary hesitancy and Denies urinary urgency Musc Denies abnormal gait, Denies atrophy, Denies deformity and Denies limited range of motion Skin/Breast Denies bleeding lesions, Denies changing lesions and Denies rash Neuro Denies abnormal gait and Denies lack of coordination Physical exam (Primary Care) Vital Signs: Last Vital Signs BP 132/76 03/06/25 12:43 BMI result Body Mass Index 26.0 Tobacco/Smoking Status: Tobacco use Status Tobacco use date assessed 09/12/24 03/06/25 12:48 Patient Tobacco Use Status Never used Tobacco 03/06/25 12:48 e-Cigarette/Vaping Use Never Used 03/06/25 12:48 PHQ-9: PHQ-9 Score PHQ-9: Total score 11 03/06/25 13:07 Depression Screening Interpretation: Positive Depression Screening Follow-up: Existing condition, In treatment and Follow-up Visit Requested Thrive Assessment: Date of Thrive Assessment Date Thrive assessed 09/12/24 03/06/25 12:48 Currently or been in a relationship where the following occur: No concerns reported [facility] Head: Yes normal to inspection, Yes normocephalic and Yes atraumatic Ears: external ears normal Eyes General: appearance normal, both eyes and all related structures Eyelids: Yes eyelids normal Conjunctivae: conjunctivae normal Neck Neck: Yes normal visual inspection and Yes supple Resp Effort & Inspection: normal respiratory effort Auscultation: clear to auscultation bilaterally Cardio Jugular venous distension: no JVD Rate: regular rate Rhythm: regular rhythm Heart sounds: S1 normal heart sound present and S2 normal heart sound present GI Inspection: Yes normal to inspection Palpation (GI): Soft to palpation and nontender Auscultation: normal bowel sounds Skin General skin exam: no rashes or lesions noted Neuro General: no focal motor deficits Extrem General: Yes full ROM Psych Appearance: grossly normal Results AMB Hemoglobin A1c AMB Hemoglobin A1c 10.2 % Last Edit by PERCY Calles on 03/06/25 12:54 Results Reviewed Results Reviewed: Laboratory Last Values Hgb A1c (Clinic) 10.2 % (4.0-6.0) H 03/06/25 12:42 Coding Level of Care Code Est Pt Prev Care >65y(31788) Diagnoses Physical exam Z00.00 Moderate major depression, single episode F32.1 Type 2 diabetes mellitus with hyperglycemia, with long-term current use of insulin E11.65; Z79.4 Diabetes mellitus type: type 2 Additional Codes PHQ-9 - 51271 - PHQ-9 Billing: Yes ([id number]) CABRERA-7 Assessment Billing - CABRERA-7 Assessment Tool: CABRERA-7 Assessment 98850 ([id number]) Time Spent (min) 33 Assessment & Plan Assessment & Plan (1) Physical exam: Code(s): Z00.00 - Encounter for general adult medical examination without abnormal findings Category: Medical (2) Moderate major depression, single episode: Code(s): F32.1 - Major depressive disorder, single episode, moderate Category: Medical (3) Diabetes mellitus with hyperglycemia, with long-term current use of insulin: Code(s): E11.65 - Type 2 diabetes mellitus with hyperglycemia; Z79.4 - halfway (current) use of insulin Category: Medical Qualifiers: Diabetes mellitus type: type 2 Qualified Code(s): E11.65 - Type 2 diabetes mellitus with hyperglycemia; Z79.4 - halfway (current) use of insulin Plan The patient will receive a pneumonia vaccination during this visit to enhance preventative care measures. For osteopenia, the patient will continue with calcium and vitamin D supplementation, and a follow-up DEXA scan is scheduled for 2025 to monitor bone density. The patient's diabetes management plan includes increasing the Lantus dosage to 35 units and maintaining metformin twice daily to improve glycemic control, with a follow-up A1c test planned in four months. For hyperlipidemia, the patient will continue taking rosuvastatin 20 mg daily, with cholesterol levels to be re-evaluated in four months. The patient's depression will be managed with sertraline, and the dosage may be adjusted based on symptomatology and response to treatment. Patient was informed and verbally consented to the use of an ambient scribe for clinic note documentation during this visit. During the visit, I discussed the importance of receiving the pneumonia vaccination and the plan to administer it today. We reviewed the patient's current management plan for osteopenia, including the continuation of calcium and vitamin D supplementation, and scheduled a follow-up DEXA scan for 2025. For diabetes management, I explained the need to increase the Lantus dosage to 35 units and maintain metformin twice daily, with a follow-up A1c test in four months to assess control. We also discussed the continuation of rosuvastatin for hyperlipidemia, with plans to re-evaluate cholesterol levels in four months. The patient's depression management with sertraline was reviewed, and I mentioned the possibility of adjusting the dosage based on her response and symptoms. Orders: Orders AMB Hemoglobin A1c Today E11.65 - Type 2 diabetes mellitus with hyperglycemia, Z79.4 - terminal supervisor (current) use of insulin Microalbumin, Random (w Creat) 4 Months R80.9 - Proteinuria, unspecified Vitamin D 25-OH Total 4 Months E55.9 - Vitamin D deficiency, unspecified Pneumococcal 20 Immunization Today Z23 - Encounter for immunization Lipid Panel 4 Months E78.5 - Hyperlipidemia, unspecified Vitamin B12 and Folate 4 Months E53.8 - Deficiency of other specified B group vitamins Comprehensive [place]. Panel Fast 4 Months E11.65 - Type 2 diabetes mellitus with hyperglycemia, Z79.4 - terminal supervisor (current) use of insulin Medications: Changed From insulin glargine 28 units (0.28 mL) subcut QPM 90 days 30 mL 1RF E11.65 - Type 2 diabetes mellitus with hyperglycemia To insulin glargine 35 units (0.35 mL) subcut DAILY 31.5 mL 1RF 90 days E11.65 - Type 2 diabetes mellitus with hyperglycemia Refilled insulin syringe-needle U-100 As directed-daily 100 ea 0RF E11.65 - Type 2 diabetes mellitus with hyperglycemia, Z79.4 - terminal supervisor (current) use of insulin Patient Instructions: - Receive pneumonia vaccination today. - Continue taking calcium and vitamin D supplements as prescribed. - Increase Lantus to 35 units and continue metformin twice daily. - Continue rosuvastatin 20 mg daily. - Follow up in four months for lab tests including A1c and cholesterol levels. - Monitor depressive symptoms and report any changes.
== END 2025-03-06 13:18 | disposition home or self-care (01) ==
LOC: HO.HMCH 12:41
PROVIDERS: PCP Internal Medicine; Visit Provider Internal Medicine
DX: Z00.00 Encounter for general adult medical examination without abnormal findings (principal); F32.1 Major depressive disorder, single episode, moderate; E11.65 Type 2 diabetes mellitus with hyperglycemia; Z79.4 Long term (current) use of insulin; Z23 Encounter for immunization

== ENCOUNTER → 2025-03-06 12:40 | Outpatient (BNVA) | payer OTHER, SELFPAY | PROVIDERS: PCP Internal Medicine; Visit Provider Internal Medicine | DX: E11.65 Type 2 diabetes mellitus with hyperglycemia (principal); M85.80 Other specified disorders of bone density and structure, unspecified site; E78.5 Hyperlipidemia, unspecified; F32.1 Major depressive disorder, single episode, moderate; Z23 Encounter for immunization; Z79.4 Long term (current) use of insulin | CPT/HCPCS: 83036; 90471; 90677; 96127; 99397 ==

== ENCOUNTER 2025-07-10 16:29 | Outpatient (AMB) | payer OTHER, SELFPAY ==
[2025-07-10 16:35] VITALS: BP 136/66; PULSE 77; RESP 18; O2SAT 97; BMI 25.9
--- NOTE | 2025-07-10 16:35 | MHC.PC.OV ---
Vital Signs 07/10/25 16:35 Height 5 ft 3 in Weight 146 lb BMI 25.9 BP 136/66 Blood Pressure Location Lt brachial Position Sitting Respiration 18 Pulse 77 Pulse Source Pulse Oximeter Temp Source Temporal Artery Scan Pulse Oximetry (%) 97 Oxygen Delivery Method Room Air Intake Visit Reasons: dm Occupational Therapist Assistants Required: No Accompanied by: Self / Same As Patient Allergies No Known Allergies Allergy (Verified 07/10/25 16:54) Medication List - Last Reconciled 07/10/25 by Jeanne Barreto MD acetaminophen (Tylenol Extra Strength) 500 mg PO Q6H PRN [air conditioner As directed] blood sugar diagnostic (FreeStyle Lite Strips) Use 1 test strip twice a day blood-glucose meter (FreeStyle Lite Meter kit) As directed calcium carbonate-vitamin D3 500 mg-10 mcg (400 unit) (Oyster Shell Calcium-Vitamin D3) 1 tab PO BID 90 days cholecalciferol (vitamin D3) 25 mcg PO DAILY 90 days flash glucose sensor (FreeStyle Royal 2 Sensor kit) As directed insulin glargine 35 units (0.35 mL) subcut DAILY 90 days insulin syringe-needle U-100 As directed-daily lancets (FreeStyle Lancets) Use 1 lancet twice a day metformin 1,000 mg PO BID 90 days pen needle, diabetic (Comfort EZ Pen [place]) Use 1 pen needle once a day rosuvastatin 20 mg PO DAILY 90 days sertraline 50 mg PO DAILY 90 days Tobacco use date assessed: 07/10/25 Fall risk assessment: No Falls in past year Last assessed Fall Risk: 07/10/25 Dental Screening Dental Screen Date: 07/10/25 HPI HPI Comments History of Present Illness Details The patient is a 79 year old individual presenting for management of chronic conditions. The patient's current medications include Tylenol, rosuvastatin for cholesterol, sertraline for depression, metformin 1000 mg twice daily, and Lantus insulin 35 units daily. She has diabetes mellitus type 2 and her A1c is 11.6% today. I will increase her Lantus from 35 units to 40 units. Besides metformin I will add Januvia. For osteopenia, the patient takes calcium with vitamin D, which was initiated after a DEXA scan in 2023. A follow-up DEXA scan is scheduled for next year. The patient reports that their depression is significant. The patient also notes that blood and urine tests were recently collected at home, but the results have not yet been communicated. [facility] Medical History CABRERA (generalized anxiety disorder) Moderate major depression, single episode Muscle cramps Vitiligo Pure hypercholesterolemia Diabetes mellitus Surgical History History of tubal ligation Family History Daughter Diabetes mellitus Mother Diabetes mellitus Father Diabetes mellitus Other Mental health disorder Substance use disorder Social History Housing: Apartment Alcohol intake: never Patient Tobacco Use Status: Never used Tobacco e-Cigarette/Vaping Use: Never Used Second Hand Smoke Exposure: No service: No Current occupational status: disabled Cognitive needs: No Hearing needs: No Vision needs: Yes Questionnaire PHQ-9 Over the last 2 weeks, how often have you been bothered by any of the following problems? 1. Little interest or pleasure in doing things: more than half the days 2. Feeling down, depressed, or hopeless: not at all 3. Trouble falling or staying asleep, or sleeping too much: nearly every day 4. Feeling tired or having little energy: more than half the days 5. Poor appetite or overeating: nearly every day 6. Feeling bad about yourself - or that you are a failure or have let yourself or your family down: not at all 7. Trouble concentrating on things, such as reading the newspaper or watching television: several days 8. Moving or speaking so slowly that other people could have noticed. Or the opposite - being so fidgety or restless that you have been moving around a lot more than usual: not at all 9. Thoughts that you would be better off or of hurting yourself in some way: not at all Total score: 11 Depression Screening Interpretation: Positive Depression Screening Follow-up: Existing condition, In treatment and Follow-up Visit Requested Depression Screening Done: Yes 81175 - PHQ-9 Billing: Yes Source: Developed by Drs. Bebeto Adkins, Mckayla B.Hira Yee and colleagues, with an educational marilin from [employer]. Thrive Questionnaire Date Thrive assessed: 07/10/25 I am a: Patient What is your living situation today?: I have a steady place to live Within the past 12 months, did the food you bought not last and you didn't have the money to get more?: Never true Within the past 12 months, did you worry whether your food would run out before you got money to buy more?: Never true Do you have trouble paying for medicines?: No Do you have trouble getting transportation to medical appointments?: No Do you have trouble paying your heating and electricity bill?: No Do you have trouble taking care of your child, family member or friend?: No Do you have trouble with day-to-day activities such as bathing, preparing meals, shopping, managing finances, etc.?: No Are you currently unemployed and looking for a job?: No Are you interested in more education?: No Please select the resources that you would like help with: None Currently or been in a relationship where the following occur: No concerns reported THRIVE Score: 0 AUDIT C Alcohol Use Questionnaire (AUDIT-C) 1. How often do you have a drink containing alcohol?: Never Total Score: 0 Score Reviewed/Action Taken: No CABRERA-7 AMB Questionnaire CABRERA-7 Date CBARERA - 7 assessed: 09/12/24 Feeling nervous, anxious, or on edge: 0 = Not at all Not being able to stop or control worryin = Not at all Worrying too much about different things: 1 = Several days Trouble relaxin = Not at all Being so restless that it is hard to sit still: 0 = Not at all Becoming easily annoyed or irritable: 0 = Not at all Feeling afraid as if something awful might happen: 0 = Not at all Total CABRERA-7 score (0-4 normal; 5-9 mild; 10-14 moderate; 15-21 severe): 1 Source: Developed by Drs. Bebeto Adkins, Hira Francis and colleagues, with an educational marilin from [employer]. CABRERA-7 Assessment Billing CABRERA-7 Assessment Tool: CABRERA-7 Assessment 91305 Review of Systems Const All systems reviewed & are unremarkable except as noted in HPI and below Card Denies chest pain at rest, Denies chest pain with activity, Denies edema, Denies irregular heart rhythm, Denies claudication, Denies dyspnea, Denies dyspnea on exertion, Denies orthopnea, Denies paroxysmal nocturnal dyspnea and Denies slow heart rate Resp Denies cough, Denies dyspnea and Denies dyspnea on exertion GI Denies abdominal pain, Denies change in bowel habits, Denies excessive flatus, Denies nausea and Denies vomiting Neuro Denies lack of coordination Physical exam (Primary Care) Vital Signs: Last Vital Signs Resp 18 07/10/25 16:35 Oxygen Delivery Method Room Air 07/10/25 16:35 Tobacco/Smoking Status: Tobacco use Status Tobacco use date assessed 07/10/25 07/10/25 16:44 Patient Tobacco Use Status Never used Tobacco 07/10/25 16:37 e-Cigarette/Vaping Use Never Used 07/10/25 16:37 PHQ-9: PHQ-9 Score PHQ-9: Total score 11 07/10/25 16:44 Depression Screening Interpretation: Positive Depression Screening Follow-up: Existing condition, In treatment and Follow-up Visit Requested Thrive Assessment: Date of Thrive Assessment Date Thrive assessed 07/10/25 07/10/25 16:44 Currently or been in a relationship where the following occur: No concerns reported Resp Effort & Inspection: normal respiratory effort Auscultation: clear to auscultation bilaterally Cardio Jugular venous distension: no JVD Rate: regular rate Rhythm: regular rhythm Heart sounds: S1 normal heart sound present and S2 normal heart sound present Extrem General: Yes full ROM Results AMB Hemoglobin A1c AMB Hemoglobin A1c 11.6 % Last Edit by Mitzi Hinojosa CMA on 07/10/25 16:57 Coding Level of Care Code Complex visit Add On G2211 Diagnoses Type 2 diabetes mellitus with hyperglycemia, with long-term current use of insulin E11.65; Z79.4 Diabetes mellitus type: type 2 Moderate major depression, single episode F32.1 Pure hypercholesterolemia E78.00 Osteopenia, unspecified location M85.80 Osteopenia location: unspecified Additional Codes CABRERA-7 Assessment Billing - CABRERA-7 Assessment Tool: CABRERA-7 Assessment 99100 ([id number]) PHQ-9 - 67953 - PHQ-9 Billing: Yes ([id number]) Assessment & Plan Assessment & Plan (1) Diabetes mellitus with hyperglycemia, with long-term current use of insulin: Code(s): E11.65 - Type 2 diabetes mellitus with hyperglycemia; Z79.4 - half-way (current) use of insulin Category: Medical Qualifiers: Diabetes mellitus type: type 2 Qualified Code(s): E11.65 - Type 2 diabetes mellitus with hyperglycemia; Z79.4 - half-way (current) use of insulin (2) Moderate major depression, single episode: Code(s): F32.1 - Major depressive disorder, single episode, moderate Category: Medical (3) Pure hypercholesterolemia: Code(s): E78.00 - Pure hypercholesterolemia, unspecified Category: Medical (4) Osteopenia: Code(s): M85.80 - Other specified disorders of bone density and structure, unspecified site Category: Medical Qualifiers: Osteopenia location: unspecified Qualified Code(s): M85.80 - Other specified disorders of bone density and structure, unspecified site Plan Plan 1. Diabetes Mellitus The patient's blood sugar is elevated on the current regimen. The Lantus dosage will be increased from 35 units to 40 units daily. The patient will continue metformin 1000 mg twice a day. Laboratory tests will be ordered for further assessment. 2. Osteopenia The patient will continue taking calcium with vitamin D. A follow-up DEXA scan is scheduled for next year. 3. Hyperlipidemia The patient will continue the current rosuvastatin regimen. Condition will be monitored with upcoming laboratory tests. 4. Depression The patient will continue taking sertraline as prescribed. Orders: Orders AMB Hemoglobin A1c Today Z13.9 - Encounter for screening, unspecified Lipid Panel Today E78.5 - Hyperlipidemia, unspecified Vitamin B12 and Folate Today E53.8 - Deficiency of other specified B group vitamins Vitamin D 25-OH Total Today E55.9 - Vitamin D deficiency, unspecified Microalbumin, Random (w Creat) Today R80.9 - Proteinuria, unspecified Comprehensive [place]. Panel Fast Today E11.65 - Type 2 diabetes mellitus with hyperglycemia, Z79.4 - tank terminal gauger (current) use of insulin Medications: New doxycycline hyclate 100 mg PO BID 14 caps 0RF 7 days sitagliptin phosphate (Januvia) 25 mg PO DAILY 90 tabs 1RF 90 days E11.65 - Type 2 diabetes mellitus with hyperglycemia, Z79.4 - tank terminal gauger (current) use of insulin Changed From insulin glargine 35 units (0.35 mL) subcut DAILY 90 days 31.5 mL 1RF E11.65 - Type 2 diabetes mellitus with hyperglycemia To insulin glargine 40 units (0.4 mL) subcut DAILY 36 mL 1RF 90 days E11.65 - Type 2 diabetes mellitus with hyperglycemia Refilled insulin syringe-needle U-100 As directed-daily 100 ea 0RF E11.65 - Type 2 diabetes mellitus with hyperglycemia, Z79.4 - tank terminal gauger (current) use of insulin
== END 2025-07-10 17:09 | disposition home or self-care (01) ==
LOC: HO.HMCH 16:30
PROVIDERS: PCP Internal Medicine; Visit Provider Internal Medicine
DX: E11.65 Type 2 diabetes mellitus with hyperglycemia (principal); Z79.4 Long term (current) use of insulin; F32.1 Major depressive disorder, single episode, moderate; E78.00 Pure hypercholesterolemia, unspecified; M85.80 Other specified disorders of bone density and structure, unspecified site

== ENCOUNTER → 2025-07-10 16:29 | Outpatient (BNVA) | payer OTHER, SELFPAY | PROVIDERS: PCP Internal Medicine; Visit Provider Internal Medicine | DX: E11.65 Type 2 diabetes mellitus with hyperglycemia (principal); M85.80 Other specified disorders of bone density and structure, unspecified site; F32.1 Major depressive disorder, single episode, moderate; E78.00 Pure hypercholesterolemia, unspecified; E55.9 Vitamin D deficiency, unspecified; R80.9 Proteinuria, unspecified; Z79.4 Long term (current) use of insulin; Z79.84 Long term (current) use of oral hypoglycemic drugs | CPT/HCPCS: 83036; 96127; 99212 ==